=== PATIENT | male | born 1990 ===

== ENCOUNTER 2020-12-19 07:32 | Emergency (ER) | payer SELFPAY ==
[2020-12-19 07:35] VITALS: BP 129/80; PULSE 73; RESP 18; TEMP 36.8; O2SAT 97; BMI 24.4
--- NOTE | 2020-12-19 07:39 | ED_ITS ---
HPI - Eye Problem General: Chief complaint: Eye Problems Stated complaint: eye injury Time Seen by Provider: 12/19/20 07:33 Source: patient Mode of arrival: ambulatory Limitations: no limitations History of Present Illness: HPI Narrative: Patient is a 30-year-old male who presents to ED today with a complaint of a foreign body to his left eye. 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 He is complaining of pain and a foreign body sensation. No visual changes. He states this will be Worker's Comp. chief complaint: eye pain, eye redness and foreign body Onset (ago): minute(s) Onset description: sudden Duration: constant Location: left eye Eye Symptoms: redness, pain and foreign body sensation Place: work Mechanism: occurred while hammering/grinding Severity: moderate Associated symptoms: Reports no associated symptoms Treatments Prior to Arrival: none Related Data: Patient tetanus UTD: No Review of Systems Eyes: Reports: photophobia, eye discomfort, eye redness and other (fb sensation); Denies: change in vision, blurry vision or blind spots Physical Exam Const: COMMON NORMALS: no acute distress, average body habitus, patient oriented x3, no limitations, healthy appearing, alert and well nourished GENERAL APPEARANCE: cooperative Eye: COMMON NORMALS: Equal, round and reactive pupils present and EOMs intact bilaterally GENERAL EYE: normal light reflex VISUAL ACUITY: Yes acuity normal VISUAL NOLAN: No peripheral vision loss PERIORBITAL: periorbital findings normal EYELID: eyelids normal CONJUNCTIVA: Yes conjunctival abnor mal positive left conjunctival injection SCLERA: sclerae normal CORNEA: Yes fluorescein used (small metal fb to central cornea) PUPIL: Yes Equal, round and reactive pupils present DIRECT OPHTHALMOSCOPY: Yes normal light reflex OTHER: metal fb removed with moist cotton swab; no residual rust ring present; corneal abrasion present after removal; eye irrigated and erythromycin ointment applied Neuro: COMMON NORMALS: patient oriented x3 SENSORIUM/ORIENTATION: Yes alert Procedures FB Removal Eye Time Out performed: No Location: eye (L) Topical anesthetic used: tetracaine Foreign body: metal Evidence of corneal penetration: No Technique: cotton tip swab Procedure performed under: direct visualization with magnification Post-procedure medication: ophthalmic antibiotic and topical anesthetic Patient tolerated procedure: well Course Vital Signs: Vital signs: Vital Signs Temperature 98.2 F 12/19/20 07:35 Pulse Rate 73 12/19/20 07:35 Respiratory Rate 18 12/19/20 07:35 Blood Pressure 129/80 12/19/20 07:35 Pulse Oximetry 97 12/19/20 07:35 Discharge Plan Discharge Patient Disposition: Home Clinical Impression: Acute foreign body of left cornea Qualifiers: Encounter type: initial encounter Qualified Code(s): T15.02XA - Foreign body in cornea, left eye, initial encounter Abrasion, corneal Qualifiers: Encounter type: initial encounter Laterality: left Qualified Code(s): S05.02XA - Injury of conjunctiva and corneal abrasion without foreign body, left eye, initial encounter Condition: Stable Prescriptions: New erythromycin 5 mg/gram (0.5 %) ointment 1 applic ophthalmic (eye) Q4H 7 Days Qty: 1 RF: 0 Discharge Orders: Discharge ED (Routine); Ordered 12/19/20 Ordered By: Aylin Kennedy Patient Instructions: Corneal Abrasion (ED), Eye Foreign Body (ED) Activity Restrictions/Additional Instructions: Fill your antibiotic immediately and use as directed. Return to the emergency department for any visual changes/visual loss, discharge from the eye, severe pain, nonimproving symptoms, or any other concerns you may have. Coding Level of Care Code ED Rn Wound Care for Andreia Villalobos
[2020-12-19] MEDS: tetanus-diphtheria tox (adult) 0.5 mL SDV IM (07:48)
[2020-12-19] MEDS: eye irrigation 30 mL Btl EYE-LEFT (07:50)
[2020-12-19] MEDS: fluorescein 1 mg Strip EYE-LEFT (07:51)
[2020-12-19] MEDS: tetracaine 0.5% Op Soln 4 mL Btl 1 DROP EYE-LEFT (07:51)
[2020-12-19] MEDS: ketorolac 60 mg/2 mL INJ IM (08:07)
[2020-12-19] MEDS: erythromycin Op Oint 1 gm 1 APPLIC EYE-LEFT (08:07)
== END 2020-12-19 08:47 | disposition home or self-care (01) ==
PROVIDERS: Emergency Provider Physician Assistant
DX: T15.02XA Foreign body in cornea, left eye, initial encounter (principal); X58.XXXA Exposure to other specified factors, initial encounter; Y99.0 Civilian activity done for income or pay; Z23 Encounter for immunization
CPT/HCPCS: 65205; 90471; 90714; 96372; 99283; J1885